=== PATIENT | male | born 1960 | race African-American/Black ===

== ENCOUNTER 2017-03-16 07:49 | Day surgery (SDC) | payer MEDICARE, OTHER ==
[~2017-03-16 07:49] MED LIST: DIPHENHYDRAMINE HCL 50 MG/ML VIAL ONE; EPINEPHRINE INJ 1 MG/10 ML DISP.SYRIN ONE; FENTANYL CITRATE INJ/PF 100 MCG/2 ML AMPUL ONE; FLUMAZENIL INJ 0.5 MG/5 ML VIAL ONE; GLUCAGON,HUMAN RECOMB 1 MG INJ ONE; NALOXONE HCL INJ/PF 0.4 MG/1 ML SDV ONE; ONDANSETRON HCL INJ/PF 4 MG/2 ML SDV ONE
[2017-03-16] MEDS: MIDAZOLAM 2 MG/2 ML INJ ONE ×2 (08:20→08:24)
[2017-03-16] MEDS: FENTANYL CITRATE INJ/PF 100 MCG/2 ML AMPUL ONE ×2 (08:22→08:26)
--- NOTE | 2017-03-16 08:33 | Operative Report ---
Operative Report DATE OF SURGERY: 03/16/17 Operative Report: The risks benefits and alternatives of the procedure explained to the patient in detail and informed consent is obtained.A GIF Olympus video scope was inserted into the patient's mouth and hypopharynx, the esophagus is identified intubated and insufflated, the scope was then advanced through the esophagus stomach and duodenum ,retroflexion maneuver is done, the esophagus stomach and first and second portions of the duodenum examined PREOPERATIVE DIAGNOSIS: Gastroesophageal reflux disease POSTOPERATIVE DIAGNOSIS: Hiatal hernia. Gastritis status post biopsy rule out Helicobacter pylori OPERATION: EGD with biopsy SURGEON: VALERIE KNAPP ANESTHESIA: Moderate Sedation - 4 mg of Versed, 100 mcg of fentanyl. Conscious sedation monitoring time 30 minutes. TISSUE REMOVED OR ALTERED: As noted above. COMPLICATIONS: None. ESTIMATED BLOOD LOSS: None. INTRAOPERATIVE FINDINGS: As noted above. PROCEDURE: Patient tolerated procedure well. No immediate postprocedure complications are noted. Patient discharged in good condition. Discharge date 03/16/2017. Discharge diet: Regular. Discharge activity: Regular. 2-3 week follow-up to discuss findings. We will wait on pathology. Patient is instructed to call the office or proceed to the emergency room should there be any further problems or questions.
[2017-03-16 12:10] VITALS: BP 114/77
== END 2017-03-16 09:35 | disposition home or self-care (01) ==
LOC: END 07:49
PROVIDERS: ATTEND Internal Medicine Gastroenterology
PROC: 0DB68ZX Excision of Stomach, Via Natural or Artificial Opening Endoscopic, Diagnostic (ICD-10-PCS; principal; 2017-03-16 08:30)
DX: K21.9 Gastro-esophageal reflux disease without esophagitis (principal); K44.9 Diaphragmatic hernia without obstruction or gangrene; K29.70 Gastritis, unspecified, without bleeding; E05.90 Thyrotoxicosis, unspecified without thyrotoxic crisis or storm; I10 Essential (primary) hypertension; M54.30 Sciatica, unspecified side; M51.36 Other intervertebral disc degeneration, lumbar region; E78.2 Mixed hyperlipidemia; Z79.82 Long term (current) use of aspirin; Z79.899 Other long term (current) drug therapy
CPT/HCPCS: 43239; 88305 ×2; J2250; J3010; J0171; J1200; J1610; J2310; J2405; J3490

== ENCOUNTER → 2017-05-18 | Outpatient (CLI) | payer MEDICARE, OTHER | LOC: OD 12:30 | PROVIDERS: ATTEND Otolaryngology | DX: E04.2 Nontoxic multinodular goiter (principal); E83.52 Hypercalcemia | CPT/HCPCS: 36415; 82310; 83970 ==

== ENCOUNTER → 2017-08-06 | Outpatient (CLI) | payer MEDICARE, OTHER ==
--- NOTE | 2017-08-06 15:43 | RADIOLOGY REPORT (SQ) ---
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 TECHNIQUE: Post IV contrasted scanning from skull base through lung apices with review of bone, soft tissue and lung windows. Reconstructed coronal and sagittal MPR images reviewed. All images stored on PACS. All CT scanners at this facility use dose modulation, iterative reconstruction, and/or weight based d osing when appropriate to reduce radiation dose to as low as reasonably achievable (ALARA). [facility]: Dose Right [facility]: CareDose [facility]: Dose Right [facility]: Teradose 4D [facility]: CareLinx CONTRAST TYPE AND DOSE: contrast/concentration: Isovue 370.00 mg/ml; Total Contrast Delivered: 75.0 ml; Total Saline Delivered: 55.0 ml RENAL FUNCTION: 0.8 RADIATION DOSE: 57 mGy . LIMITATIONS: None. FINDINGS: SKULL BASE: Inferior brain parenchyma unremarkable MAJOR SALIVARY GLANDS: No solid or cystic masses. No inflammatory changes. LYMPHADENOPATHY: No adenopathy. MUCOSAL MASSES OR ASYMMETRY: No mucosal masses or asymmetry. LARYNX/CORDS: No abnormal findings. VASCULAR STRUCTURES: The major vessels are patent. LUNG APICES: Clear. BONES: Intact. THYROID: Normal size. No thyroid masses. PARANASAL SINUSES: Clear. OTHER: A 1.0 cm AP by 0.9 cm transverse by 1.5 cm craniocaudad nodule is present in the left neck jus t dorsal to the left mid pole thyroid on axial image 70, coronal image 74, and sagittal image 88. Th is has bright arterial contrast enhancement which washes out on the delayed images. This may represe nt a parathyroid adenoma. Inflamed lymph node could also mimic this appearance IMPRESSION: 1.5 x 1 x 0.9 cm nodule along the dorsal aspect left midpole thyroid, likely a parathyro id adenoma. A lymph node could mimic this appearance. TECHNICAL DOCUMENTATION: JOB ID: [id number] Quality ID # [id number]: Final reports with documentation of one or more dose reduction techniques (e.g., Au tomated exposure control, adjustment of the mA and/or kV according to patient size, use of iterative reconstruction technique) 2010 [employer]- All Rights Reserved Reading location - IP/workstation name: [email or web address]
== END ==
LOC: RAD 13:21
PROVIDERS: ATTEND Otolaryngology
DX: E04.2 Nontoxic multinodular goiter (principal)
CPT/HCPCS: 70492; 82565

== ENCOUNTER 2017-08-27 07:02 | Day surgery (SDC) | payer MEDICARE, OTHER ==
[~2017-08-27 07:02] MED LIST changes: +ACETAMINOPHEN 100 ML IV ONE; +CEFAZOLIN 2 GM/D5W RTU 2 GM/50 ML RTUPB IV SCH; +CEFAZOLIN SODIUM 2 GM in NORMAL SALINE 100 ML IV PRN; +DEXAMETHASONE SOD PHOS INJ 10 MG/1 ML VIAL ONE; -DIPHENHYDRAMINE HCL 50 MG/ML VIAL ONE; -EPINEPHRINE INJ 1 MG/10 ML DISP.SYRIN ONE; +FAMOTIDINE INJ/PF 20 MG/2 ML SDV IV ONE; -FLUMAZENIL INJ 0.5 MG/5 ML VIAL ONE; -GLUCAGON,HUMAN RECOMB 1 MG INJ ONE; +GLYCOPYRROLATE INJ 0.4 MG/2 ML VIAL ONE; +LIDOCAINE 2% INJ-PF (20 MG/ML) 10 ML AMPUL ONE; +MIDAZOLAM 2 MG/2 ML INJ ONE; -NALOXONE HCL INJ/PF 0.4 MG/1 ML SDV ONE; +PROPOFOL INJ 200 MG/20 ML VIAL IV ONE; +SUCCINYLCHOLINE CHLORIDE INJ 200 MG/10 ML VIAL ONE
[2017-08-27] MEDS ORDERED: BUPIVACAINE HCL 0.5%/EPI 1:200000 INJ 1.8 ML CARTRIDGE ONE (08:11)
[2017-08-27] MEDS ORDERED: RINGERS SOLUTION,LACTATED 1,000 ML IV PRN (08:42)
[2017-08-27] MEDS ORDERED: SCOPOLAMINE HYDROBROMIDE 1.5 MG PATCH.TD72 TD ONE (08:45)
[2017-08-27] MEDS ORDERED: EPHEDRINE SULFATE INJ 50 MG/1 ML AMPULE ONE (09:17)
[2017-08-27] MEDS ORDERED: PHENYLEPHRINE HCL INJ/PF 10 MG/1 ML SDV ONE (11:57)
--- NOTE | 2017-08-27 18:26 | EKG REPORT ---
SEVERITY:- ABNORMAL ECG - SINUS RHYTHM FIRST DEGREE AV BLOCK PROBABLE LEFT ATRIAL ABNORMALITY MINIMAL ST ELEVATION, ANTERIOR LEADS ,NO OLD EKG FOR COMPARISON, : Confirmed by: Edy Giles MD 27-Aug-2017 18:26:27
--- NOTE | 2017-08-30 07:55 | SURGICARE OPERATIVE REPORT E ---
[facility] Operative Report NAME: PARIS LESTER AGE: 57Y DATE OF SURGERY: 08/27/2017 ROOM: PREOPERATIVE DIAGNOSIS: LEFT PARATHYROID ADENOMA. POSTOPERATIVE DIAGNOSIS: LEFT PARATHYROID ADENOMA. OPERATION: Left parathyroidectomy. SURGEON: JAYCEE URBINA D.O. ANESTHESIA: General endotracheal. ANESTHESIA STAFF: HERMAN Green. ESTIMATED BLOOD LOSS: 10 mL. FLUIDS: None. COMPLICATIONS: None. DRAINS: None. SPONGE COUNT: Verified. NEEDLE COUNT: Verified. MATERIALS FORWARDED SPECIMEN: Left parathyroid adenoma measuring approximately 2 x 1 cm in dimension, and the intraoperative frozen section evaluation with pathology was consistent with tissue. Impression was tissue consistent with a parathyroid adenoma. LABORATORY: Preoperative intact PTH was 55. Postoperative/post parathyroid adenoma removal, intact PTH was 14. FINDINGS: Tissue consistent with a left parathyroid adenoma, deep to the left thyroid lobe, and which measured approximately 2 x 1 cm in dimension. INDICATIONS: This is a 53-year-old male patient who was seen and evaluated and followed in the [facility] office. The patient had been referred for and he complained of a history of symptoms consistent with a parathyroid adenoma. The patient was with hypercalcemia and elevated intact PTH, laboratory values that have also been repeated over the months. The patient also underwent 24-hour urine collection with hypercalciuria noted as well. The patient had also undergone sestamibi imaging with changes consistent with a left-sided parathyroid adenoma. The patient, in addition, underwent a CT soft tissue neck with contrast protocol specific for identifying locations of parathyroid adenomas, which localized changes consistent with a parathyroid adenoma deep to the left thyroid lobe. After extensive discussion with the patient, recommendation and plan was made to proceed with a left parathyroidectomy, which he voiced an understanding of, agreed with and desired to proceed with. The risks and complications of the recommended surgery were discussed in detail with the patient. He voiced an understanding, agreed to proceed, and consent was obtained. PROCEDURE: The patient was taken to the main operating room and placed on the operating room table in the supine position. Appropriate monitors were placed. Using mask and IV access, general anesthesia was induced. The patient was then transorally intubated without difficulty. An incision site was marked at the anterior neck, followed by infiltration with local anesthetic with epinephrine. The patient was prepped and draped in a sterile fashion for neck surgery. The skin was sharply incised down through the level of the platysma, into the subcutaneous tissues. The skin flaps were elevated in a subplatysmal fashion. Strap muscles were identified and divided in the midline, and the left thyroid lobe was identified. Strap muscles were mobilized, as was the left thyroid lobe. Bipolar cautery was used to provide adequate hemostasis throughout the case. Deep to the left thyroid lobe, as identified on CT imaging as well, there was tissue that appeared consistent with a parathyroid adenoma. This was mobilized and passed off for pathology evaluation. An intraoperative frozen was also performed, with findings as noted above. The wound site was thoroughly irrigated, with adequate hemostasis noted. There was Surgicel placed within the wound bed. At this point, the strap muscles were reapproximated in the midline with Vicryl suture. The platysma was reapproximated, as was deep subcutaneous tissue with Vicryl suture. Next, deep dermal tissue layers were reapproximated with 5-0 Monocryl suture. Last, the skin margins were reapproximated with 5-0 Monocryl in a continuous deep dermal fashion. At this point, the patient's skin was cleaned and dried, followed by placement of Mastisol and Steri-Strips. The patient was then returned to the Anesthesia staff and was allowed to emerge from general anesthesia. The patient was extubated in the main operating room and was then transported to the post anesthesia recovery unit in stable condition. There were no complications. DICTATING PHYSICIAN: JAYCEE URBINA D.O. [id number] PHY#: [id number] ID: [id number] JOB#: [id number] ACCT: [id number] cc:JAYCEE URBINA D.O. >
== END 2017-08-27 13:40 | disposition home or self-care (01) ==
LOC: SC 07:02
PROVIDERS: ATTEND Otolaryngology
DX: D35.1 Benign neoplasm of parathyroid gland (principal); E83.52 Hypercalcemia; I10 Essential (primary) hypertension; K21.9 Gastro-esophageal reflux disease without esophagitis; G47.30 Sleep apnea, unspecified; Z79.899 Other long term (current) drug therapy; Z79.82 Long term (current) use of aspirin
CPT/HCPCS: 36415; 83970; 88305 ×2; 88331 ×2; 93005; 93010; 60500; J2250; J3490 ×2; J3010; J2370; J0330; J2405; J2704; S0028; J1100; J0690; J0131; 320

== ENCOUNTER 2017-09-08 08:20 | Day surgery (SDC) | payer MEDICARE, OTHER ==
[~2017-09-08 08:20] MED LIST changes: -ACETAMINOPHEN 100 ML IV ONE; -CEFAZOLIN 2 GM/D5W RTU 2 GM/50 ML RTUPB IV SCH; -CEFAZOLIN SODIUM 2 GM in NORMAL SALINE 100 ML IV PRN; -DEXAMETHASONE SOD PHOS INJ 10 MG/1 ML VIAL ONE; +DIPHENHYDRAMINE HCL 50 MG/ML VIAL ONE; +EPINEPHRINE INJ 1 MG/10 ML DISP.SYRIN ONE; -FAMOTIDINE INJ/PF 20 MG/2 ML SDV IV ONE; -FENTANYL CITRATE INJ/PF 100 MCG/2 ML AMPUL ONE; +FLUMAZENIL INJ 0.5 MG/5 ML VIAL ONE; +GLUCAGON,HUMAN RECOMB 1 MG INJ ONE; -GLYCOPYRROLATE INJ 0.4 MG/2 ML VIAL ONE; -LIDOCAINE 2% INJ-PF (20 MG/ML) 10 ML AMPUL ONE; -MIDAZOLAM 2 MG/2 ML INJ ONE; +NALOXONE HCL INJ/PF 0.4 MG/1 ML SDV ONE; -PROPOFOL INJ 200 MG/20 ML VIAL IV ONE; -SUCCINYLCHOLINE CHLORIDE INJ 200 MG/10 ML VIAL ONE
[2017-09-08] MEDS: MIDAZOLAM 2 MG/2 ML INJ ONE ×2 (08:55→08:59)
[2017-09-08] MEDS: FENTANYL CITRATE INJ/PF 100 MCG/2 ML AMPUL ONE ×2 (08:57→09:05)
--- NOTE | 2017-09-08 09:19 | Operative Report ---
Operative Report DATE OF SURGERY: 09/08/17 Operative Report: The risks, benefits and alternatives of the procedure including risks of bleeding, perforation requiring surgery I explained to the patient in detail and informed consent was obtained. Patient is placed in a left, lateral decubital position. Timeout was called. Conscious sedation medications are provided. A rectal examination is done which did not reveal any masses, tears or fissures. An Olympus videoscope was inserted into the patient's rectum. The scope was then carefully advanced all the way to the cecum. The cecum was identified by the usual anatomical landmarks including the ileocecal valve as well as the appendiceal office. Photodocumentation is obtained. Scope was then sequentially pulled back via the various segments of the colon including the ascending colon, hepatic flexure, transverse colon, splenic flexure, descending colon and finally to the rectosigmoid portions of the colon. Retroflexion maneuver is performed. PREOPERATIVE DIAGNOSIS: Colorectal cancer screening POSTOPERATIVE DIAGNOSIS: Right-sided colon inflammation status post biopsy. Severe sigmoid diverticulosis. Internal hemorrhoids OPERATION: Colonoscopy with biopsy SURGEON: VALERIE KNAPP ANESTHESIA: Moderate Sedation - 4 mg of Versed, 100 mcg of fentanyl. Conscious sedation monitoring time 30 minutes. TISSUE REMOVED OR ALTERED: As noted above. COMPLICATIONS: None. ESTIMATED BLOOD LOSS: None. INTRAOPERATIVE FINDINGS: As noted above. PROCEDURE: Patient tolerated the procedure well. No immediate postprocedure complications are noted. Patient discharged in good condition. Discharge date 09/08/2017. Discharge diet: Regular. Discharge activity: Regular. 2-3 week follow-up to discuss findings. Patient is instructed to call the office or proceed to the emergency room should there be any further problems or questions. We will await the pathology. 5 year surveillance colonoscopy.
[2017-09-08 10:13] VITALS: BP 119/54
== END 2017-09-08 10:15 | disposition home or self-care (01) ==
LOC: END 08:20
PROVIDERS: ATTEND Internal Medicine Gastroenterology
DX: Z12.11 Encounter for screening for malignant neoplasm of colon (principal); K57.30 Diverticulosis of large intestine without perforation or abscess without bleeding; K52.9 Noninfective gastroenteritis and colitis, unspecified; K64.8 Other hemorrhoids; E78.2 Mixed hyperlipidemia; E05.90 Thyrotoxicosis, unspecified without thyrotoxic crisis or storm; I10 Essential (primary) hypertension; Z79.82 Long term (current) use of aspirin; Z79.899 Other long term (current) drug therapy
CPT/HCPCS: 45380; 88305 ×2; J2250; J3010; J0171; J1200; J1610; J2310; J2405; J3490

== ENCOUNTER → 2019-02-06 | Outpatient (CLI) | payer MEDICARE, OTHER ==
--- NOTE | 2019-02-06 13:18 | RADIOLOGY REPORT (SQ) ---
EXAM DESCRIPTION: SHOULDER LEFT 2 OR MORE VIEWS COMPLETED DATE/TIME: 02/06/2019 11:43 am REASON FOR STUDY: ACUTE PAIN OF LEFT SHOULDER M25.512 PAIN IN LEFT SHOULDER COMPARISON: None. NUMBER OF VIEWS: Three views. TECHNIQUE: Internal rotation, external rotation, and Y view images acquired of the left shoulder. LIMITATIONS: None. FINDINGS: MINERALIZATION: Normal. BONES: No acute fracture. No worrisome bone lesions. JOINTS: No dislocation. VISUALIZED LUNGS AND RIBS: No pneumothorax. No rib fracture. SOFT TISSUES: No radiopaque foreign body. OTHER: No other significant finding. IMPRESSION: NEGATIVE STUDY OF THE LEFT SHOULDER. NO RADIOGRAPHIC EVIDENCE OF ACUTE INJURY. TECHNICAL DOCUMENTATION: JOB ID: [id number] [employer]- All Rights Reserved Reading location - IP/workstation name: [email or web address]
== END ==
LOC: OD 11:28
PROVIDERS: ATTEND Nurse Practitioner Family
DX: M25.512 Pain in left shoulder (principal)

== ENCOUNTER → 2019-02-17 | Outpatient (CLI) | payer MEDICARE, OTHER ==
--- NOTE | 2019-02-17 13:28 | RADIOLOGY REPORT (SQ) ---
EXAM DESCRIPTION: MRI LT UPPER JOINT WITHOUT COMPLETED DATE/TIME: 02/17/2019 1:12 pm REASON FOR STUDY: M25.512 PAIN IN LEFT SHOULDER M25.512 PAIN IN LEFT SHOULDER COMPARISON: Left shoulder plain films 02/06/2019 TECHNIQUE: Left shoulder non arthrogram images acquired and stored on PACS. Multiplanar imaging to i nclude fat sensitive sequences such as T1, water sensitive sequences such as FST2/STIR, cartilage sen sitive sequences such as FSPD/gradient-echo sequences. LIMITATIONS: None. FINDINGS: BONE MARROW AND CORTEX: No marrow signal abnormality worrisome for occult fracture JOINT OR BURSAL EFFUSION: Trace fluid in the subacromial/subdeltoid bursa GLENO-HUMERAL ARTICULATION: Normal articulation. No subluxation. No cystic change. No osteophytes or cartilage loss. ACROMION AND AC JOINT: Type 2 acromion with mild acromioclavicular joint hypertrophy and narrowing o f the subacromial space. Trace fluid in the subacromial/subdeltoid bursa ROTATOR CUFF AND INTERVAL: There is high signal along the rotator interval on sagittal STIR images 8- 11 and coronal images 7-10 worrisome rotator interval tear. A small full-thickness tear is seen along the anterior most edge of the supraspinatus tendon with adj acent subcortical cyst formation in the greater tuberosity. This is best shown on sagittal images 6- 8 and coronal image 10. There is increased signal from tendinopathy in the superior margin of the perez bscapularis on sagittal images 8-14. infraspinatus is intact. LABRUM AND BICEPS LABRAL COMPLEX: Intact. No labral tear. Intra-articular long-head biceps tendon n ormal. Distal biceps in normal location in bicipital groove. REMAINDER OF LABRUM AND IGHL : No gross tear or paralabral cyst formation. Labral evaluation is less than optimal without joint distention. No thickening of IGHL to suggest adhesive capsulitis. PERIARTICULAR AND ADJACENT SOFT TISSUES: No masses or abnormal nodes. OTHER: No other significant finding. IMPRESSION: Rotator interval high signal worrisome tear Tiny full-thickness tear anterior edge supraspinatus tendon, trace fluid in the subacromial/subdeltoi d bursa. Mild acromioclavicular joint hypertrophy. TECHNICAL DOCUMENTATION: JOB ID: [id number] [employer]- All Rights Reserved Reading location - IP/workstation name: [email or web address]
== END ==
LOC: RAD 12:00
PROVIDERS: ATTEND Nurse Practitioner Family
DX: M75.122 Complete rotator cuff tear or rupture of left shoulder, not specified as traumatic (principal); M25.512 Pain in left shoulder

== ENCOUNTER → 2020-04-26 | Outpatient (CLI) | payer MEDICARE, OTHER ==
[~2020-04-26] MED LIST changes: +COVID-19 VACCINE (PFIZER)/PF 30 MCG/0.3 ML VIAL IM ONE; -DIPHENHYDRAMINE HCL 50 MG/ML VIAL ONE; -EPINEPHRINE INJ 1 MG/10 ML DISP.SYRIN ONE; +EPINEPHRINE INJ/PF 1 MG/1 ML AMPULE IM PRN; -FLUMAZENIL INJ 0.5 MG/5 ML VIAL ONE; -GLUCAGON,HUMAN RECOMB 1 MG INJ ONE; -NALOXONE HCL INJ/PF 0.4 MG/1 ML SDV ONE; -ONDANSETRON HCL INJ/PF 4 MG/2 ML SDV ONE
== END ==
LOC: EMPHEALTH 16:32
PROVIDERS: ATTEND Internal Medicine
DX: Z23 Encounter for immunization (principal)
CPT/HCPCS: 91300